=== PATIENT | female | born 1995 | race Caucasian/White ===

== ENCOUNTER 2023-06-13 20:54 | Inpatient (IN) | payer BC ==
[2023-06-13] VITALS (8 sets, daily range): BP systolic 124–135; BP diastolic 65–82; PULSE 97–116; TEMP 98.4–98.8
[~2023-06-13] VITALS: Ht 167.6 cm; Wt 89.1 kg
--- NOTE | 2023-06-13 21:00 | NUR ---
PT OF , , 39, PRESENTS FOR CONTRACTIONS AND LEAKING OF FLUIDS OF 1200 TODAY. CONFIRMS MOVEMENT. DENIES ANY HEAVY BLEEDING STATES SHE HAS HAD A SMALL AMOUNT OF BLOOD IN THE LEAKING FLUIDS. DENIES ANY COMPLICATIONS WITH THIS .
--- NOTE | 2023-06-13 21:17 | NUR ---
NOTIFIED THAT PT OF , , 39/, PRESENTS FOR LEAKING OF FLUIDS. TIME OF RUPTURE WAS 1200 TODAY, CLEAR FLUIDS NOTED. PT WENDY EVERY 3-5 MINUTES. DILATED 3/90%/-2. STRIP HAS BEEN REACTIVE. NO COMPLICATIONS WITH THIS . GBS NEGATIVE. ORDERS TO ADMIT PATIENT, SHE MAY HAVE AN EPIDURAL IF SHE DESIRES, IF SIGNIFICANT CERVICAL CHANGE HAS NOT BEEN MADE WITHIN A FEW HOURS TO START PITOCIN.
[2023-06-13 22:00] LABS: BASO % 0.2 % (0.0-2.0); EOS # 0.1 K/mm3 (0.0-0.7); EOS % 0.6 % (0.0-4.0); GRAN # 13.5 K/mm3 (1.4-6.5); GRAN % 77.1 % (42.2-75.2); HEMATOCRIT 38.2 % (37.0-47.0); LYMPH # 2.4 K/mm3 (1.2-3.4); LYMPH % 13.5 % (20.0-51.0); MEAN CELL VOLUME 89 fl (80.0-100.0); MEAN CORPUSCULAR HEMOGLOBIN 30 pg (27-31); MEAN CORPUSCULAR HGB CONC 34 g/dl (33.0-37.0); MEAN PLATELET VOLUME 10.8 fl (7.4-10.4); MONO # 1.4 K/mm3 (0.1-0.6); MONO % 7.8 % (1.7-9.3); PLATELET COUNT 236 K/mm3 (130-400); RED BLOOD COUNT 4.31 M/mm3 (4.10-5.30); REDCELL DISTRIBUTION WIDTH-CV 13.6 % (11.5-14.5)
--- NOTE | 2023-06-13 22:30 | NUR ---
JOHNATHAN PRUITT NOTIFIED AT 2157 THAT PT WOULD LIKE AN EPIDURAL, SROM. DILATED 3, , HE STATES HE WILL HEAD THIS WAY. SINGLE SHOT PERFORMED AT 2225.
[2023-06-13] MEDS ORDERED: ZYRTEC5 MG PO (22:51)
[2023-06-13] MEDS ORDERED: PNV-SELECT1 TAB PO (22:51)
[2023-06-14] VITALS (95 sets, daily range): BP systolic 93–152; BP diastolic 52–96; PULSE 71–162; TEMP 97.7–100
--- NOTE | 2023-06-14 02:30 | NUR ---
FLUIDS INCREASED DUE TO TACHYCARDIA.
--- NOTE | 2023-06-14 16:55 | NUR ---
DR CHIANG BEDSIDE.SVE .AROM PERFORMED WITH FLUID RETURNED.PT TOLERATED PROCEDURE WELL.EFM AND TOCO TRACING CATEGORY 1.MATERNAL VITAL SIGNS STABLE.
--- NOTE | 2023-06-14 21:20 | NUR ---
0 GENTAMYCIN IVPB HUNG. TYLENOL 625 MG GIVEN [place]. 2139 ZOFRAN 4 MG IV GIVEN FOR NAUSEA AND OCC EMEISI. 2144 TXA 1000 MG GIVEN OVER 15 MINUTES IVP.
--- NOTE | 2023-06-14 22:30 | NUR ---
2229 READIED FOR DELIVERY. 2244 DELIVERY VIABLE FEMALE OVER EPISIOTOMY WITH 8/9/9 APGARS. IV CONTS TO INFUSE. 2250 DELIVERY OF PLACENTA 225 METHERGINE 0.2MG IM GIVEN 225 CYTOTEC 800 MG PLACED ME BY DR CHIANG. [facility]. REMAINS IN LR3 FOR RECOVERY
--- NOTE | 2023-06-14 23:20 | NUR ---
2320 MOTRIN 800 MG PO FOR HEADACHE.
[2023-06-15] VITALS (7 sets, daily range): BP systolic 104–117; BP diastolic 46–71; PULSE 75–109; TEMP 97.7–99
--- NOTE | 2023-06-15 01:20 | NUR ---
0120 IV INFUSED AND TO INT. EPID CATH REMOVED. CAN MOVE LEGS BUT STILL SL NUMB AND UNABLE TO AMB. PERICARE DONE IN BED. SM TO SCANT VAG BLEEDING NOTED. PADS AND PANTIES ON. NO URGE TO VOID. MOVED PER SERRASTEADY TO 207 AND ANNITA WELL. ORIENTED TO ROOM AND INSTRUCTED TO CALL FOR HELP IF NEEDS TO GET OUT OF BED.
--- NOTE | 2023-06-15 10:19 | NUR ---
Initial visit; Patient, her and mother thanked Property Management Supervisor for offering congratulations and God's blessings for the of their little girl. Property Management Supervisor thanked family for choosing [facility] [place].
[2023-06-16 06:40] VITALS: BP 119/51; PULSE 83; TEMP 97.9
[2023-06-16] MEDS ORDERED: IBU800 M1 PO (08:56)
[2023-06-16 14:35] VITALS: PULSE 110; TEMP 97.9
[2023-06-16 15:36] VITALS: BP 121/50; PULSE 96; TEMP 98
== END 2023-06-16 20:55 | disposition home or self-care (01) | DRG 805 ==
LOC: LDRO 20:54 → LDR 21:26 → OB 21:26
PROVIDERS: Obstetrics & Gynecology; ADMIT Obstetrics & Gynecology
PROC: 10E0XZZ Delivery of Products of Conception, External Approach (ICD-10-PCS; principal; 2023-06-14)
PROC: 0KQM0ZZ Repair Perineum Muscle, Open Approach (ICD-10-PCS; 2023-06-14)
PROC: 0W8NXZZ Division of Female Perineum, External Approach (ICD-10-PCS; 2023-06-14)
DX: O76 Abnormality in fetal heart rate and rhythm complicating labor and delivery (principal); O41.1230 Chorioamnionitis, third trimester, not applicable or unspecified; Z37.0 Single live birth; O72.1 Other immediate postpartum hemorrhage; Z3A.39 39 weeks gestation of pregnancy; O70.1 Second degree perineal laceration during delivery
CPT/HCPCS: J0690; J1580; J2210; J2405; J2590; J2795; J7120